=== PATIENT | male | born 1970 | race Caucasian/White ===

== ENCOUNTER 2022-12-27 11:59 | Day surgery (SDC) | payer BC, SELFPAY ==
[2022-12-27 07:56] VITALS: BMI 26.4
[2022-12-27 12:01] VITALS: BP 129/77; PULSE 78; RESP 18; TEMP 36.8; O2SAT 98
[2022-12-27] MEDS: Lactated Ringers 1,000 ML 50 ML IVCONT (12:21)
--- NOTE | 2022-12-27 12:44 | HO.ANESPROP2 ---
HPI - Anesthesia Eval Consult details Narrative: 52 yo male patient for EGD PMF Active Problems Active Problems: All Active Problems (Updated 10/05/21 @ 11:08 by Gayla Carblalo MD) Leucopenia (Chronic) Past Medical History Medical History GERD (gastroesophageal reflux disease) Normal colonoscopy Right knee meniscal tear Family History Family History Maternal Grandmother Diabetes Father Diabetes Heart attack Family history of problems with anesthesia: No Surgical History Surgical History (Updated 12/27/22 @ 12:24 by Geovanna Sandhu RN) History of esophagogastroduodenoscopy Status post surgical removal of nail matrix of toe History of Problems with Anesthesia: No Social History Social History (Updated 10/04/22 @ 08:45 by Caryn Franklin) Household Members: Spouse Housing: House Alcohol intake: current Alcohol intake frequency: holidays/special occasions only Alcohol type: beer Patient Tobacco Use Status: Former Tobacco user Quit Date: 1994 Tobacco use type: Cigarette Cigarette Packs Per Day: 1 Are you DNR?: No Advance Directives: No Advance Directives Information Provided: Yes Recently lost weight without trying: No Nutrition Risks: No Nutritional Risk service: No Current occupational status: employed Meds Allergies Allergy/AdvReac Type Severity Reaction Status Date / Time No Known Allergies Allergy Unverified 10/05/21 08:15 Active Medications: Current Medications Lactated Ringer's (Lr) 1,000 mls @ 50 mls/hr IVCONT .Q20H PRISCILLA Last Admin: 12/27/22 12:21 Dose: 50 mls/hr Home Medications Medication Instructions Recorded Confirmed Last Taken Type multivitamin 1 tab PO DAILY 10/06/20 10/04/22 12/26/22 History omeprazole 20 mg capsule,delayed 1 cap PO DAILY 10/06/20 10/04/22 12/26/22 History release Exam Exam Date and Time: December 27, 2022 1244 Height,Weight and Vital Signs: Height 6 ft Weight 88.451 kg Last Vital Signs Temp 98.3 F 12/27/22 12:01 Pulse 78 12/27/22 12:01 Resp 18 12/27/22 12:01 BP 129/77 12/27/22 12:01 Pulse Ox 98 12/27/22 12:01 O2 Del Method 12/27/22 12:01 Airway Mallampati Class: II TM Dist: >3cm Neck ROM: Full Loose/Missing/Broken Teeth: Yes (Broken/ missing top Right back) Heart: RRR Lungs: CTAB Assessment and Plan Assessment Anesthesia Assessment: Anesthesia Plan Discussed and Chart Reviewed Final Anesthetic Review Family History of Problems with Anesthesia: No History of Problems with Anesthesia: No NPO: Yes ASA Class: II Final Preanesthetic Review: No Changes in Pt Med Stat, Meds/Allgs Chart Reviewed, Consent Obtained/Reviewed and Anes Risks/Benef Reviewed Patient Risk: Low Procedure Risk: Low Assessment/Block/Sedation in SS: Assess/Block/Sedation-SS Anesthetic Plan Anesthetic Plan: MAC: Disposition: Standard PACU
--- NOTE | 2022-12-27 13:07 | MHC.SHP ---
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 No changes have occurred unless specified. Time Spent With Patient Time: Total time managing care of this patient today ____ minutes.
--- NOTE | 2022-12-27 13:21 | PM.OP ---
Brief Operative Note Date of Service: 12/27/22 Pre-op diagnosis: barretts Post-op diagnosis: same Procedure: EGD Surgeon: Finesse Caldwell Anesthesia: MAC Was an [employer] Pract[employer]er used for this Procedure?: No Estimated blood loss (mL): 2 Pathology: other Condition: stable Disposition: PACU
[2022-12-27 13:24] VITALS: BP 119/69; PULSE 74; RESP 14; TEMP 36.8; O2SAT 98
[2022-12-27 13:44] VITALS: BP 136/87; PULSE 81; RESP 18; TEMP 36.7; O2SAT 97
--- NOTE | 2022-12-28 00:18 | OP_ITS ---
SURGEON: Finesse Caldwell MD INDICATIONS: Haywood's esophagus. PREOPERATIVE DIAGNOSIS: POSTOPERATIVE DIAGNOSIS: PROCEDURE PERFORMED: Upper endoscopy with biopsy. ESTIMATED BLOOD LOSS: COMPLICATIONS: ANESTHESIA: Monitored anesthesia care. ASSISTANTS: SPECIMENS: PROCEDURE DESCRIPTION: Date:12/27/22. A history and physical performed. The risks and benefits of the procedure were explained to the patient and informed consent was obtained. The patient was placed in the left lateral decubitus position. The Olympus video gastroscope was introduced into the esophagus, stomach, and duodenum. Examination was performed. The scope was removed. He tolerated the procedure well and was taken to Recovery in stable condition. FINDINGS: Esophagus: The esophagus was normal. There was an irregular EG junction. There were no raised lesions or ulcerated areas. There was no esophagitis. Biopsies were obtained at the EG junction. Stomach: The stomach showed no evidence of masses, ulcers, or polyps. Duodenum: The bulb and 2nd portion were normal. IMPRESSION: Haywood's esophagus. RECOMMENDATION: Follow up the biopsy results. MD SAYDA Grant/MODL / [id number] MTDD
== END 2022-12-27 14:20 | disposition home or self-care (01) ==
PROVIDERS: PCP Internal Medicine; Visit Provider Internal Medicine Gastroenterology
PROC: 0DJ08ZZ Inspection of Upper Intestinal Tract, Via Natural or Artificial Opening Endoscopic (ICD-10-PCS; CPT 43235; principal; 2022-12-27 13:00)
DX: K22.70 Barrett's esophagus without dysplasia (principal); K21.9 Gastro-esophageal reflux disease without esophagitis; E78.00 Pure hypercholesterolemia, unspecified; Z79.899 Other long term (current) drug therapy
CPT/HCPCS: 43239; 88305